=== PATIENT | female | born 1980 ===

== ENCOUNTER 2017-07-30 05:53 | Inpatient (IN) | payer OTHER ==
[~2017-07-30 05:53] MED LIST: TAMOXIFEN CITRA20 MG PO
== END 2017-07-31 12:13 | disposition home or self-care (01) | DRG 580 ==
LOC: CIR.AMB 05:53 → O/R 13:14 → SURH 13:33 → CIR.AMB 14:22 → SURH 07-31 12:13
PROVIDERS: Surgery
PROC: 07T60ZZ Resection of Left Axillary Lymphatic, Open Approach (ICD-10-PCS; principal; 2017-07-30 07:00)
DX: C50.612 Malignant neoplasm of axillary tail of left female breast (principal); C77.3 Secondary and unspecified malignant neoplasm of axilla and upper limb lymph nodes

== ENCOUNTER 2017-07-30 07:49 | Outpatient (CLI) | payer OTHER | END 2017-07-30 07:57 | disposition home or self-care (01) | LOC: SONOGRAMA 07:49 | DX: C50.612 Malignant neoplasm of axillary tail of left female breast (principal) ==